=== PATIENT | female | born 1965 | race Caucasian/White ===

== ENCOUNTER 2021-08-24 00:39 | Emergency (ER) | payer MEDICARE, MEDICAID ==
[~2021-08-24] VITALS: Ht 157.5 cm; Wt 76.8 kg
[~2021-08-24 00:39] MED LIST: ASPI-1071 PO; CARB-89 PO; FLUT16SP26 BOTHNARES; LANTUS SUBCUT; LEVO125T PO; LINA5TAB4 PO; LORA10TA7 PO; METF-436 PO; MONT-40 PO; ONDA8TAB9 PO; RISP4TAB73 PO; TOP100T PO; TRIH2TAB3 PO; VENL150T3 PO; VENL75TA90 PO
[2021-08-24] MEDS ORDERED: ondansetron/PF 4mg/2ml inj IV ONE (01:15)
[2021-08-24] MEDS ORDERED: normal saline 1000ml 1,000 ML IV ONE ×2 (01:15→02:55)
[2021-08-24 02:07] LABS: ALANINE AMINOTRANSFERASE 11 U/L (12-78); ALBUMIN 4.3 G/DL (3.4-5.0); ALKALINE PHOSPHATASE 107 IU/L (46-116); ANION GAP 12 (8-16); ASPARTATE AMINO TRANSFERASE 11 U/L (10-37); BILIRUBIN,TOTAL 0.4 MG/DL (0.1-1.0); BLOOD UREA NITROGEN 21 MG/DL (7-18); BUN/CREATININE RATIO 20.6 (6.6-38.0); CALCIUM 9.9 MG/DL (8.5-10.1); CHLORIDE 94 MMOL/L (99-107); CREATININE 1.02 MG/DL (0.40-0.90); GLUCOSE 278 MG/DL (70-104); POTASSIUM 4.7 MMOL/L (3.5-5.1); SODIUM 135 MMOL/L (135-145); TOTAL CARBON DIOXIDE 28.7 MMOL/L (24-32); TOTAL PROTEIN 8.4 G/DL (6.4-8.2); eGFR 56 ML/MIN
[2021-08-24 02:17] LABS: BASOPHILS # (AUTO) 0.1 X10'3 (0-0.2); BASOPHILS % (AUTO) 0.5 % (0-1); EOSINOPHILS % (AUTO) 0.1 % (0-6); LYMPHOCYTES % (AUTO) 8.9 % (21-51); MEAN CORPUSCULAR HEMOGLOBIN 29.3 PG (27.0-31.0); MEAN CORPUSCULAR HGB CONC 33.4 g/dL (33.0-36.5)
[2021-08-24 02:18] LABS: HEMATOCRIT 45.2 % (35.0-45.0); HEMOGLOBIN 15.1 g/dl (12.0-16.0); LYMPHOCYTES # (AUTO) 1.3 X10'3 (1.1-4.8); MEAN CORPUSCULAR VOLUME 87.7 FL (78-98); MONOCYTES # (AUTO) 0.3 X10'3 (0-0.9); MONOCYTES % (AUTO) 2.2 % (2-12); NEUTROPHILS # (AUTO) 12.9 X10'3 (1.8-7.7); NEUTROPHILS % (AUTO) 88.3 % (42-75); RED BLOOD COUNT 5.15 X10'6 (4.20-5.60); RED CELL DISTRIBUTION WIDTH 13.7 % (11.5-14.5); WHITE BLOOD COUNT 14.7 X10'3 (4.5-11.0)
[2021-08-24 02:35] LABS: CLARITY,URINE SLIGHTLY CLOUDY (Clear); COLOR,URINE YELLOW (Yellow); GLUCOSE, URINE NEGATIVE (Neg); KETONES,URINE 15 mg/dl (Neg); LEUKOCYTE ESTERASE ,URINE NEGATIVE (Neg); NITRITES, URINE NEGATIVE (Neg); OCCULT BLOOD,URINE NEGATIVE (Neg); PROTEIN,URINE 100 mg/dl (Neg); UROBILINOGEN,URINE 0.2 E.U/dL (0.2-1.0)
[2021-08-24 02:37] LABS: UA COLLECTION TYPE OTHER
[2021-08-24 02:43] LABS: BACTERIA,URINE 4+ /HPF (Neg); MUCUS STRANDS NONE SEEN /LPF (Neg); RBC,URINE NONE SEEN /HPF (0-2); SQUAMOUS EPITHELIAL CELL,UR MODERATE /LPF (FEW)
[2021-08-24] MEDS ORDERED: ketorolac trometh. 30mg/ml inj. IV ONE (02:50)
[2021-08-24] MEDS ORDERED: cefTRIAXone 1g/NS 100ml IVPB 100 ML IV ONE (02:55)
[2021-08-24 02:58] LABS: PLATELET COUNT 242 X10'3 (140-440)
[2021-08-24] MEDS ORDERED: POLY119P2 PO (03:38)
[2021-08-24] MEDS ORDERED: GLYC-23 RC (03:39)
[2021-08-24] MEDS ORDERED: CEPH-585 PO (03:40)
[2021-08-24 04:43] VITALS: BP 151/77
== END 2021-08-24 04:47 | disposition home or self-care (01) ==
LOC: ER 00:40
DX: R62.50 Unspecified lack of expected normal physiological development in childhood (principal); G20 Parkinson's disease; E78.00 Pure hypercholesterolemia, unspecified; E11.9 Type 2 diabetes mellitus without complications; Z87.440 Personal history of urinary (tract) infections; Z79.899 Other long term (current) drug therapy; Z79.82 Long term (current) use of aspirin; Z79.2 Long term (current) use of antibiotics
CPT/HCPCS: 36415; 71045; 74176; 80053; 81001; 85025; 96361; 96365; 96366; 96375; 99285; J0696; J1885; J2405; J7030

== ENCOUNTER 2022-12-06 17:38 | Emergency (ER) | payer MEDICARE, MEDICAID ==
[~2022-12-06] VITALS: Ht 157.5 cm; Wt 70.0 kg
[~2022-12-06 17:38] MED LIST changes: +GLYC-23 RC; +POLY119P2 PO
[2022-12-06 17:46] VITALS: BP 188/104; PULSE 116; RESP 20; O2SAT 99
[2022-12-06] MEDS ORDERED: CEFD300C3 PO (20:12)
[2022-12-06 20:24] LABS: BILIRUBIN,URINE NEGATIVE (Neg); CLARITY,URINE CLEAR (Clear); COLOR,URINE YELLOW (Yellow); GLUCOSE, URINE >=1000 mg/dl (Neg); KETONES,URINE >=80 mg/dl (Neg); LEUKOCYTE ESTERASE ,URINE NEGATIVE (Neg); NITRITES, URINE POSITIVE (Neg); OCCULT BLOOD,URINE TRACE-INTACT (Neg); PH,URINE 5.5 (4.8-8.0); PROTEIN,URINE 100 mg/dl (Neg); UROBILINOGEN,URINE 0.2 E.U/dL (0.2-1.0)
[2022-12-06 20:31] LABS: UA COLLECTION TYPE OTHER
[2022-12-06] MEDS ORDERED: ONDA4TAB12 PO (20:31)
[2022-12-06 20:34] LABS: BACTERIA,URINE 4+ /HPF (Neg); MUCUS STRANDS FEW /LPF (Neg); RBC,URINE 0-2 /HPF (0-2); SQUAMOUS EPITHELIAL CELL,UR MODERATE /LPF (FEW); WBC CLUMPS,URINE FEW /HPF (NEGATIVE)
[2022-12-06 20:35] LABS: YEAST FEW /HPF (NEGATIVE)
== END 2022-12-06 20:46 | disposition home or self-care (01) ==
LOC: ER 17:39
DX: N39.0 Urinary tract infection, site not specified (principal); E78.00 Pure hypercholesterolemia, unspecified; E11.9 Type 2 diabetes mellitus without complications; F20.9 Schizophrenia, unspecified; Z88.8 Allergy status to other drugs, medicaments and biological substances; Z79.899 Other long term (current) drug therapy
CPT/HCPCS: 81001; 82948; 87077; 87088; 87186; 99283